=== PATIENT | female | born 2000 | race Caucasian/White ===

== ENCOUNTER 2019-10-20 14:02 | Inpatient (IN) | payer SELFPAY ==
[~2019-10-20] VITALS: Ht 165.1 cm; Wt 67.2 kg
--- NOTE | 2019-10-20 14:17 | NUR ---
TASK RN: PT WHEELED TO ROOM 17 WITH STAFF, PT ACTIVELY VOMITTING.
--- NOTE | 2019-10-20 14:33 | NUR ---
TASK RN: MD AT BEDSIDE FOR EXAM.
[2019-10-20] MEDS ORDERED: FAMOTIDINE 20 MG/2 ML ONE (14:54)
[2019-10-20] MEDS ORDERED: ONDANSETRON 2MG/ML, 2ML ONE (14:54)
[2019-10-20] MEDS ORDERED: PROMETHAZINE 25 MG/ML, 1ML ONE (14:54)
[2019-10-20] MEDS ORDERED: SODIUM CHLORIDE 0.9% 1,000ML IVBOLUS ONE (15:00)
[2019-10-20] MEDS ORDERED: SODIUM CHLORIDE FLUSH 10ML SYR IVF ONE (15:00)
[2019-10-20] MEDS ORDERED: ONDANSETRON 2MG/ML, 2ML IVPush ONE (15:00)
[2019-10-20] MEDS ORDERED: PROMETHAZINE 25 MG/ML, 1ML IM ONE (15:00)
[2019-10-20] MEDS ORDERED: FAMOTIDINE 20 MG/2 ML IV ONE (15:00)
--- NOTE | 2019-10-20 15:30 | NUR ---
IV ESTABLISHED AND PT MEDICATED PER MAR. FRIEND AT BEDSIDE, CALL LIGHT WITHIN REACH. AWAITING LABWORK
[2019-10-20 15:31] LABS: ALBUMIN 4.4 g/dL (3.4-5.0); ANION GAP 14 mmol/L (5-15); CALCIUM 9.4 mg/dL (8.5-10.1); CHLORIDE 105 mmol/L (98-107)
[2019-10-20 15:34] LABS: MEAN CORPUSCULAR HEMOGLOBIN 30.6 pg (27.0-34.8); MEAN CORPUSCULAR HGB CONC 33.4 g/dL (32.4-35.8); MEAN CORPUSCULAR VOLUME 91.7 fL (80-100); MEAN PLATELET VOLUME 8.1 fL (7.4-10.4); PLATELET COUNT 434 x10^3/uL (130-400); RED BLOOD COUNT 4.77 x10^6/uL (3.82-5.3); RED CELL DISTRIBUTION WIDTH 13.1 % (9.6-15.2)
[2019-10-20 15:37] LABS: ALANINE AMINOTRANSFERASE 26 U/L (12-78); ALKALINE PHOSPHATASE 70 U/L (45-117); BILIRUBIN,TOTAL 0.7 mg/dL (0.2-1.0); CREATININE 1.15 mg/dL (0.55-1.02); TOTAL PROTEIN 8.5 g/dL (6.4-8.2)
--- NOTE | 2019-10-20 16:03 | NUR ---
PT AMBULATED TO BATHROOM WITH STEADY GAIT, GIVEN URINE CUP FOR UA
[2019-10-20 16:05] LABS: BASOPHILS # (AUTO) 0.06 x10^3/uL (0-0.1); BASOPHILS % (AUTO) 0 % (0-1); EOSINOPHILS % (AUTO) 0 % (1-7); LYMPHOCYTES # (AUTO) 1.17 x10^3/uL (1-3.4); LYMPHOCYTES % (AUTO) 5 % (22-44); MD SCAN; MONOCYTES % (AUTO) 1 % (2-9); NEUTROPHILS # (AUTO) 23.24 x10^3/uL (1.8-6.8); NEUTROPHILS % (AUTO) 94 % (42-75)
[2019-10-20 16:23] LABS: MICROSCOPIC AUTO
--- NOTE | 2019-10-20 16:26 | NUR ---
PT UNABLE TO TOLERATE PO, NOTIFIED PT TO BE ADMITTED
[2019-10-20 16:29] LABS: CULTURE INDICATED? NO
--- NOTE | 2019-10-20 17:13 | NUR ---
REPORT TO TRENT SAHY
--- NOTE | 2019-10-20 17:17 | NUR ---
ADMITTING MD AT BEDSIDE
[2019-10-20 17:30] VITALS: BP 100/69
[2019-10-20] MEDS ORDERED: DOCUSATE 100 MG CAPSULE PO PRN (17:30)
[2019-10-20] MEDS ORDERED: ONDANSETRON 2MG/ML, 2ML IVPush PRN (17:30)
[2019-10-20] MEDS ORDERED: POLYETHYLENE GLYCOL 17 GM PACKET PO PRN (17:30)
[2019-10-20] MEDS ORDERED: ACETAMINOPHEN 325 MG TABLET PO PRN (17:30)
[2019-10-20] MEDS ORDERED: PROMETHAZINE 25 MG/ML, 1ML IM PRN (17:30)
[2019-10-20] MEDS ORDERED: BISACODYL 10 MG SUPP PR PRN (17:30)
[2019-10-20 19:21] VITALS: BP 106/67
[2019-10-20] MEDS: FAMOTIDINE 20 MG/2 ML IVPush SCH (19:22)
[2019-10-20] MEDS: SODIUM CHLORIDE 0.9% 1,000 ML IV SCH (19:23)
[2019-10-20] MEDS ORDERED: FLU VACC QS2019-20 36MOS UP/PF 0.5 ML IM-VACC ONE (19:30)
[2019-10-21 00:56] VITALS: BP 100/64
[2019-10-21] MEDS: SODIUM CHLORIDE 0.9% 1,000 ML IV SCH ×2 (01:42→08:13)
[2019-10-21 05:23] LABS: ALBUMIN 3.1 g/dL (3.4-5.0); ANION GAP 4 mmol/L (5-15); CALCIUM 7.6 mg/dL (8.5-10.1); CHLORIDE 113 mmol/L (98-107)
[2019-10-21 05:26] LABS: BASOPHILS # (AUTO) 0.03 x10^3/uL (0-0.1); BASOPHILS % (AUTO) 0 % (0-1); EOSINOPHILS # (AUTO) 0.06 x10^3/uL (0-0.4); EOSINOPHILS % (AUTO) 1 % (1-7); LYMPHOCYTES # (AUTO) 3.41 x10^3/uL (1-3.4); LYMPHOCYTES % (AUTO) 26 % (22-44); MD NO; MEAN CORPUSCULAR HEMOGLOBIN 31.3 pg (27.0-34.8); MEAN CORPUSCULAR HGB CONC 33.5 g/dL (32.4-35.8); MEAN CORPUSCULAR VOLUME 93.6 fL (80-100); MEAN PLATELET VOLUME 7.9 fL (7.4-10.4); MONOCYTES # (AUTO) 1.14 x10^3/uL (0.2-0.8); MONOCYTES % (AUTO) 9 % (2-9); NEUTROPHILS # (AUTO) 8.55 x10^3/uL (1.8-6.8); NEUTROPHILS % (AUTO) 65 % (42-75); PLATELET COUNT 287 x10^3/uL (130-400); RED BLOOD COUNT 3.97 x10^6/uL (3.82-5.3); RED CELL DISTRIBUTION WIDTH 13.4 % (9.6-15.2)
[2019-10-21 05:35] LABS: ALANINE AMINOTRANSFERASE 23 U/L (12-78); ALKALINE PHOSPHATASE 49 U/L (45-117); BILIRUBIN,TOTAL 0.6 mg/dL (0.2-1.0); CREATININE 0.77 mg/dL (0.55-1.02); TOTAL PROTEIN 6.2 g/dL (6.4-8.2)
[2019-10-21 06:28] LABS: MICROSCOPIC NOT IND
[2019-10-21 06:31] LABS: CULTURE INDICATED? NO
[2019-10-21 06:35] VITALS: BP 100/62
[2019-10-21] MEDS ORDERED: POTASSIUM CHLORIDE 20 MEQ TAB.ER.PRT PO ONE (08:00)
[2019-10-21] MEDS ORDERED: MAGNESIUM SULFATE PMX 2GM/50ML 50 ML IV ONE (08:00)
[2019-10-21] MEDS: FAMOTIDINE 20 MG/2 ML IVPush SCH (08:13)
[2019-10-21 13:17] VITALS: BP 106/68
== END 2019-10-21 13:40 | disposition home or self-care (01) | DRG 368 ==
LOC: ED 15:21 → EDIP 16:26 → 3N 19:08
PROVIDERS: ADMIT Internal Medicine; ATTEND Internal Medicine
DX: K22.6 Gastro-esophageal laceration-hemorrhage syndrome (principal); N17.0 Acute kidney failure with tubular necrosis; R65.10 Systemic inflammatory response syndrome (SIRS) of non-infectious origin without acute organ dysfunction; K29.20 Alcoholic gastritis without bleeding; D72.829 Elevated white blood cell count, unspecified; Z80.0 Family history of malignant neoplasm of digestive organs; E86.0 Dehydration; Z88.6 Allergy status to analgesic agent
CPT/HCPCS: 36415; 96372; 96374; 99285; J3490; 80053; 81001; 81003; 83690; 83735; 84100; 84439; 84443; 84703; 85025; 90686; G0378; J2405; J2550; J3475; J7030

== ENCOUNTER 2020-06-15 13:19 | Observation (INO) | payer OTHER ==
[~2020-06-15] VITALS: Ht 152.4 cm; Wt 75.7 kg
[2020-06-15] MEDS ORDERED: ONDANSETRON ODT 4 MG ONE (13:26)
--- NOTE | 2020-06-15 13:29 | NUR ---
Pt offered Zofran ODT per protocol for active vomiting in triage. Pt declines.
--- NOTE | 2020-06-15 13:51 | NUR ---
SENIOR PUBLICATIONS SPECIALIST: PT TO ROOM FROM DESIREE LUNSFORD
--- NOTE | 2020-06-15 14:03 | NUR ---
PT AMBULATED TO RESTROOM TO PROVIDE URINE SAMPLE WITH STEADY GAIT. UA ORDERED PER PROTOCOL AND SENT TO LAB.
--- NOTE | 2020-06-15 14:08 | NUR ---
PT STATES SHE ONLY GOT A LITTLE URINE IN THE CUP, SO SHE THREW IT OUT. WILL TRY AGAIN LATER.
[2020-06-15] MEDS ORDERED: ONDANSETRON 2MG/ML, 2ML ONE ×2 (14:19→18:06)
[2020-06-15] MEDS ORDERED: METOCLOPRAMIDE 5 MG/ML, 2ML ONE (14:26)
[2020-06-15] MEDS ORDERED: DIPHENHYDRAMINE 50 MG/ML, 1ML ONE (14:27)
[2020-06-15] MEDS ORDERED: METOCLOPRAMIDE 5 MG/ML, 2ML IVPush ONE (14:30)
[2020-06-15] MEDS ORDERED: SODIUM CHLORIDE FLUSH 10ML SYR IVF ONE (14:30)
[2020-06-15] MEDS ORDERED: DIPHENHYDRAMINE 50 MG/ML, 1ML IV ONE (14:30)
[2020-06-15] MEDS ORDERED: SODIUM CHLORIDE 0.9% 1,000ML IVBOLUS ONE ×2 (14:30→17:30)
[2020-06-15 14:45] LABS: BASOPHILS # (AUTO) 0.03 x10^3/uL (0-0.1); BASOPHILS % (AUTO) 0 % (0-1); EOSINOPHILS # (AUTO) 0.09 x10^3/uL (0-0.4); EOSINOPHILS % (AUTO) 1 % (1-7); LYMPHOCYTES # (AUTO) 0.96 x10^3/uL (1-3.4); LYMPHOCYTES % (AUTO) 7 % (22-44); MD NO; MEAN CORPUSCULAR HEMOGLOBIN 30.4 pg (27.0-34.8); MEAN CORPUSCULAR HGB CONC 33.7 g/dL (32.4-35.8); MEAN CORPUSCULAR VOLUME 90.2 fL (80-100); MEAN PLATELET VOLUME 8.7 fL (7.4-10.4); MONOCYTES # (AUTO) 0.29 x10^3/uL (0.2-0.8); MONOCYTES % (AUTO) 2 % (2-9); NEUTROPHILS # (AUTO) 13.12 x10^3/uL (1.8-6.8); NEUTROPHILS % (AUTO) 91 % (42-75); PLATELET COUNT 306 x10^3/uL (130-400); RED BLOOD COUNT 4.63 x10^6/uL (3.82-5.3); RED CELL DISTRIBUTION WIDTH 12.9 % (9.6-15.2)
[2020-06-15 14:49] LABS: ALANINE AMINOTRANSFERASE 19 U/L (12-78); ALBUMIN 4.1 g/dL (3.4-5.0); ANION GAP 12 mmol/L (5-15); CALCIUM 8.8 mg/dL (8.5-10.1); CHLORIDE 109 mmol/L (98-107); CREATININE 1.17 mg/dL (0.55-1.02)
[2020-06-15 14:53] LABS: ALKALINE PHOSPHATASE 53 U/L (45-117); BILIRUBIN,TOTAL 0.5 mg/dL (0.2-1.0); TOTAL PROTEIN 7.7 g/dL (6.4-8.2)
--- NOTE | 2020-06-15 15:37 | NUR ---
PT MOVED TO SUPERVISOR OF GUIDANCE AND TESTING BED AND SUPERVISOR OF GUIDANCE AND TESTING CART SET UP. PT REMINDED MULTIPLE TIMES TO KEEP ARM STRAIGHT FOR IVF INFUSION. TOWEL PLACED UNDER ARM TO HELP KEEP STRAIGHT.
[2020-06-15 16:16] LABS: MICROSCOPIC NOT IND
--- NOTE | 2020-06-15 16:21 | NUR ---
PT GOING TO US
--- NOTE | 2020-06-15 17:55 | NUR ---
BREAK RN: PT C/O OF NAUSEA DISCUSSED WITH DR. HILL, ORDERS RECEIVED.
[2020-06-15] MEDS ORDERED: HALOPERIDOL 5 MG/ML IM ONE (17:56)
[2020-06-15] MEDS ORDERED: ONDANSETRON 2MG/ML, 2ML IVPush ONE (18:00)
[2020-06-15] MEDS ORDERED: HALOPERIDOL 5 MG/ML ONE (18:06)
--- NOTE | 2020-06-15 18:16 | NUR ---
BREAK RN: MEDICATED PER ORDERS, PT WILL BE ADMITED, PT VERBALIZED UNDERSTANDING OF PLAN OF CARE. WARM BLANKET GIVEN, CALL LIGHT IN PLACE
[2020-06-15] MEDS ORDERED: LORazepam 2 MG/ML, 1ML IVPush PRN (19:00)
[2020-06-15] MEDS ORDERED: MELATONIN 5 MG TABLET PO PRN (19:00)
[2020-06-15] MEDS ORDERED: BISACODYL 10 MG SUPP PR PRN (19:00)
[2020-06-15] MEDS ORDERED: POLYETHYLENE GLYCOL 17 GM PACKET PO PRN (19:00)
[2020-06-15] MEDS ORDERED: METOCLOPRAMIDE 5 MG/ML, 2ML IVPush PRN (19:00)
[2020-06-15] MEDS ORDERED: ACETAMINOPHEN 325 MG TABLET PO PRN (19:00)
[2020-06-15] MEDS ORDERED: PROMETHAZINE 25 MG/ML, 1ML IM PRN (19:00)
[2020-06-15] MEDS ORDERED: ONDANSETRON 2MG/ML, 2ML IVPush PRN (19:00)
--- NOTE | 2020-06-15 19:21 | NUR ---
REPORT GIVEN TO JANIE SHAY.
[2020-06-15 19:50] VITALS: BP 101/59
[2020-06-15] MEDS ORDERED: LIDODERM 5% PATCH TD PRN (20:00)
[2020-06-15] MEDS ORDERED: LIDODERM REMOVE PATCH NOTE XX SCH (20:00)
[2020-06-15] MEDS ORDERED: POTASSIUM CHLORIDE 40 MEQ in LACTATED RINGERS 1,000 ML IV SCH (21:00)
[2020-06-15] MEDS: FAMOTIDINE 20 MG/2 ML IVPush SCH (21:36)
[2020-06-16 00:55] VITALS: BP 103/61
[2020-06-16 05:44] LABS: BASOPHILS # (AUTO) 0.02 x10^3/uL (0-0.1); BASOPHILS % (AUTO) 0 % (0-1); EOSINOPHILS # (AUTO) 0.04 x10^3/uL (0-0.4); EOSINOPHILS % (AUTO) 0 % (1-7); LYMPHOCYTES % (AUTO) 25 % (22-44); MD NO; MEAN CORPUSCULAR HEMOGLOBIN 30.5 pg (27.0-34.8); MEAN CORPUSCULAR HGB CONC 33.3 g/dL (32.4-35.8); MEAN CORPUSCULAR VOLUME 91.5 fL (80-100); MEAN PLATELET VOLUME 8.5 fL (7.4-10.4); MONOCYTES # (AUTO) 0.85 x10^3/uL (0.2-0.8); MONOCYTES % (AUTO) 8 % (2-9); NEUTROPHILS # (AUTO) 6.89 x10^3/uL (1.8-6.8); NEUTROPHILS % (AUTO) 66 % (42-75); PLATELET COUNT 246 x10^3/uL (130-400); RED BLOOD COUNT 4.06 x10^6/uL (3.82-5.3); RED CELL DISTRIBUTION WIDTH 13.6 % (9.6-15.2)
[2020-06-16 05:54] LABS: ANION GAP 7 mmol/L (5-15); CALCIUM 8.3 mg/dL (8.5-10.1); CHLORIDE 114 mmol/L (98-107)
[2020-06-16 05:55] LABS: CREATININE 0.84 mg/dL (0.55-1.02)
[2020-06-16] MEDS: FAMOTIDINE 20 MG/2 ML IVPush SCH (07:49)
[2020-06-16 07:53] VITALS: BP 99/59
[2020-06-16] MEDS ORDERED: SENNA/DOCUSATE TABLET PO SCH (09:00)
[2020-06-18] MEDS ORDERED: AMOX-291 PO (12:27)
== END 2020-06-16 12:00 | disposition home or self-care (01) ==
LOC: ED 15:23 → INTOOBSV 18:13 → EDIP 18:13 → 3N 19:36 → DCLOUNGE 06-16 11:52
PROVIDERS: ADMIT Family Medicine; ATTEND Hospitalist
DX: R11.15 Cyclical vomiting syndrome unrelated to migraine (principal); E87.6 Hypokalemia; R10.31 Right lower quadrant pain; E86.0 Dehydration; F12.20 Cannabis dependence, uncomplicated; R73.9 Hyperglycemia, unspecified; D72.829 Elevated white blood cell count, unspecified; J45.909 Unspecified asthma, uncomplicated; J02.9 Acute pharyngitis, unspecified; R05 Cough; T40.7X5A Adverse effect of cannabis (derivatives), initial encounter; F10.11 Alcohol abuse, in remission; Z87.19 Personal history of other diseases of the digestive system
CPT/HCPCS: 36415; 71046; 76830; 80048; 80053; 81003; 83036; 83690; 84703; 85025; 87081; 87880; 96361; 96365; 96366; 96375; 96376; 99285; G0378; J1200; J1630; J2405; J2765; J3480; J3490; J7030; J7120; 87147

== ENCOUNTER 2020-06-16 20:50 | Emergency (ER) | payer OTHER ==
[~2020-06-16] VITALS: Ht 162.6 cm; Wt 70.9 kg
[2020-06-16] MEDS ORDERED: METOCLOPRAMIDE 5 MG/ML, 2ML ONE (21:16)
[2020-06-16] MEDS ORDERED: HALOPERIDOL 5 MG/ML ONE (21:16)
[2020-06-16] MEDS ORDERED: HALOPERIDOL 5 MG/ML IV ONE (21:30)
[2020-06-16] MEDS ORDERED: SODIUM CHLORIDE FLUSH 10ML SYR IVF ONE (21:30)
[2020-06-16] MEDS ORDERED: SODIUM CHLORIDE 0.9% 1,000ML IVBOLUS ONE (21:30)
[2020-06-16] MEDS ORDERED: METOCLOPRAMIDE 5 MG/ML, 2ML IVPush ONE (21:30)
[2020-06-16 21:41] LABS: BASOPHILS # (AUTO) 0.05 x10^3/uL (0-0.1); BASOPHILS % (AUTO) 1 % (0-1); EOSINOPHILS # (AUTO) 0.04 x10^3/uL (0-0.4); EOSINOPHILS % (AUTO) 0 % (1-7); LYMPHOCYTES # (AUTO) 2.25 x10^3/uL (1-3.4); LYMPHOCYTES % (AUTO) 20 % (22-44); MD NO; MEAN CORPUSCULAR HEMOGLOBIN 30.5 pg (27.0-34.8); MEAN CORPUSCULAR HGB CONC 33.5 g/dL (32.4-35.8); MEAN CORPUSCULAR VOLUME 91.2 fL (80-100); MEAN PLATELET VOLUME 8.5 fL (7.4-10.4); MONOCYTES # (AUTO) 0.59 x10^3/uL (0.2-0.8); MONOCYTES % (AUTO) 5 % (2-9); NEUTROPHILS # (AUTO) 8.19 x10^3/uL (1.8-6.8); NEUTROPHILS % (AUTO) 74 % (42-75); PLATELET COUNT 295 x10^3/uL (130-400); RED BLOOD COUNT 4.58 x10^6/uL (3.82-5.3); RED CELL DISTRIBUTION WIDTH 13.5 % (9.6-15.2)
[2020-06-16 21:49] LABS: ALANINE AMINOTRANSFERASE 19 U/L (12-78); ANION GAP 10 mmol/L (5-15); CALCIUM 8.7 mg/dL (8.5-10.1); CHLORIDE 110 mmol/L (98-107); CREATININE 1.14 mg/dL (0.55-1.02)
[2020-06-16 21:53] LABS: ALKALINE PHOSPHATASE 49 U/L (45-117); BILIRUBIN,TOTAL 0.5 mg/dL (0.2-1.0); TOTAL PROTEIN 7.7 g/dL (6.4-8.2)
[2020-06-16] MEDS ORDERED: PROMETHAZINE 25 MG/ML, 1ML ONE (22:10)
[2020-06-16] MEDS ORDERED: DIPHENHYDRAMINE 50 MG/ML, 1ML ONE (22:10)
[2020-06-16] MEDS ORDERED: DIPHENHYDRAMINE 50 MG/ML, 1ML IVPush ONE (22:30)
[2020-06-16] MEDS ORDERED: PROMETHAZINE 25 MG/ML, 1ML IM ONE (22:30)
[2020-06-17 00:06] VITALS: BP 148/88
[2020-06-18] MEDS ORDERED: AMOX-291 PO (12:27)
== END 2020-06-17 00:08 | disposition home or self-care (01) ==
LOC: ED 21:47
DX: R11.2 Nausea with vomiting, unspecified (principal); R10.84 Generalized abdominal pain; R10.9 Unspecified abdominal pain
CPT/HCPCS: 36415; 80053; 84703; 85025; 96361; 96372; 96374; 96375; 99284; J1200; J1630; J2550; J2765; J7030